=== PATIENT | male | born 1995 | race Caucasian/White ===

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

== ENCOUNTER 2017-03-22 08:43 | Outpatient (RCR) | payer OTHER | END 2017-03-24 | disposition home or self-care (01) | PROVIDERS: ATTEND Orthopaedic Surgery Orthopaedic Trauma | DX: Z47.1 Aftercare following joint replacement surgery (principal); Z96.642 Presence of left artificial hip joint ==

== ENCOUNTER 2017-04-05 09:15 | Outpatient (RCR) | payer OTHER | END 2017-04-05 13:59 | disposition home or self-care (01) | PROVIDERS: ATTEND Orthopaedic Surgery Orthopaedic Trauma | DX: Z47.1 Aftercare following joint replacement surgery (principal); Z96.642 Presence of left artificial hip joint ==

== ENCOUNTER 2021-06-20 13:36 | Outpatient (RCR) | payer OTHER | END 2021-06-24 | disposition home or self-care (01) | PROVIDERS: ATTEND Orthopaedic Surgery | DX: M75.52 Bursitis of left shoulder (principal) ==

== ENCOUNTER 2021-07-01 12:43 | Outpatient (RCR) | payer OTHER | END 2021-07-25 | disposition home or self-care (01) | PROVIDERS: ATTEND Orthopaedic Surgery | DX: M75.52 Bursitis of left shoulder (principal) ==